=== PATIENT | female | born 1950 | race Caucasian/White ===

== ENCOUNTER → 2018-12-04 | Outpatient (CLI) | payer MEDICARE, OTHER ==
[2018-12-04 13:54] VITALS: BP 157/76; PULSE 96; RESP 16; TEMP 97.7; BMI 16.7
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
== END ==
LOC: WWCWWP 13:35
PROVIDERS: ATTEND Surgery
DX: Z53.9 Procedure and treatment not carried out, unspecified reason (principal)